=== PATIENT | female | born 2000 | race Caucasian/White ===

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

== ENCOUNTER 2021-08-07 10:16 | Emergency (ER) | payer BC, MEDICAID ==
[2021-08-07] MEDS ORDERED: Sodium Chloride 0.9% 10 ML Syringe FLUSH PRN (10:43)
[2021-08-07] MEDS ORDERED: Ondansetron 4 MG/2 ML SDV IVPUSH ONE (10:43)
[2021-08-07] MEDS ORDERED: Sodium Chloride 0.9% 2.5 ML Syringe FLUSH PRN (10:43)
[2021-08-07] MEDS ORDERED: Sodium Chloride 0.9% 1,000 ML IV ONE (10:43)
[2021-08-07 11:57] LABS: BLOOD UREA NITROGEN,BUN 5 mg/dL (7.0-18.0); CARBON DIOXIDE,CO2 23.2 mmol/L (21.0-32.0); CHLORIDE,CL 102 mmol/L (98-107); GLUCOSE RANDOM 89 mg/dL (74-106); POTASSIUM,K 3.6 mmol/L (3.5-5.1); SODIUM,NA 136 mmol/L (136-145)
[2021-08-07 17:42] VITALS: BP 96/49; PULSE 60
== END 2021-08-07 13:28 | disposition home or self-care (01) ==
LOC: MW.ED 10:16
DX: O23.11 Infections of bladder in pregnancy, first trimester (principal); O21.9 Vomiting of pregnancy, unspecified; Z88.0 Allergy status to penicillin; Z3A.01 Less than 8 weeks gestation of pregnancy
CPT/HCPCS: 36415; 80053; 81001; 84702; 85025; 96374; 99284; J2405; J3490; J7030

== ENCOUNTER 2021-08-12 20:03 | Emergency (ER) | payer BC, MEDICAID ==
[2021-08-12] MEDS ORDERED: Sodium Chloride 0.9% 1,000 ML IV ONE (20:39)
[2021-08-12] MEDS ORDERED: Ondansetron 4 MG/2 ML SDV IVPUSH ONE (20:39)
[2021-08-12 20:59] LABS: BLOOD UREA NITROGEN,BUN 4 mg/dL (7.0-18.0); CARBON DIOXIDE,CO2 23.7 mmol/L (21.0-32.0); CHLORIDE,CL 102 mmol/L (98-107); GLUCOSE RANDOM 91 mg/dL (74-106); POTASSIUM,K 3.9 mmol/L (3.5-5.1); SODIUM,NA 137 mmol/L (136-145)
[2021-08-12 22:21] VITALS: BP 100/52; PULSE 63
== END 2021-08-12 22:10 | disposition home or self-care (01) ==
LOC: MW.ED 20:03
DX: O99.891 Other specified diseases and conditions complicating pregnancy (principal); R10.84 Generalized abdominal pain; Z88.0 Allergy status to penicillin; Z3A.01 Less than 8 weeks gestation of pregnancy
CPT/HCPCS: 36415; 76817; 80053; 81001; 84702; 85025; 87086; 96374; 99284; J2405; J7030; 99283

== ENCOUNTER 2021-10-03 10:40 | Emergency (ER) | payer BC, MEDICAID ==
[2021-10-03] MEDS ORDERED: Sodium Chloride 0.9% 1,000 ML IV ONE (11:11)
[2021-10-03] MEDS ORDERED: Sodium Chloride 0.9% 10 ML Syringe FLUSH PRN (11:11)
[2021-10-03] MEDS ORDERED: Sodium Chloride 0.9% 2.5 ML Syringe FLUSH PRN (11:11)
[2021-10-03 12:03] LABS: CARBON DIOXIDE,CO2 23.9 mmol/L (21.0-32.0); POTASSIUM,K 3.6 mmol/L (3.5-5.1)
[2021-10-03 13:01] VITALS: BP 100/65; PULSE 61
== END 2021-10-03 12:50 | disposition home or self-care (01) ==
LOC: MW.ED 10:40
DX: O23.42 Unspecified infection of urinary tract in pregnancy, second trimester (principal); N39.0 Urinary tract infection, site not specified; O21.9 Vomiting of pregnancy, unspecified; Z3A.14 14 weeks gestation of pregnancy; Z88.0 Allergy status to penicillin
CPT/HCPCS: 36415; 80053; 81001; 81025; 85025; 96360; 99284; J3490; J7030

== ENCOUNTER 2022-02-28 12:01 | Observation (INO) | payer BC, MEDICAID ==
[2022-02-28] MEDS ORDERED: cefTRIAXone 1 GM in Sodium Chloride 0.9% 50 ML IV ONE (12:39)
[2022-02-28] MEDS ORDERED: Lactated Ringers 1,000 ML IV ONE (12:45)
[2022-02-28] MEDS ORDERED: Water For Irrigation,Sterile 1,000 ML Container IRR PRN (13:27)
[2022-02-28] MEDS ORDERED: Sodium Chloride 0.9% 20 ML SDV IV PRN (13:27)
[2022-02-28] MEDS ORDERED: Lidocaine 1% 50 ML MDV INJECT PRN (13:27)
[2022-02-28] MEDS ORDERED: Tranexamic Acid 1,000 MG in Sodium Chloride 0.9% 100 ML IV PRN (13:27)
[2022-02-28] MEDS ORDERED: Sodium Chloride 0.9% 10 ML Syringe FLUSH PRN (13:27)
[2022-02-28] MEDS ORDERED: Misoprostol 200 MCG Tab PO PRN (13:27)
[2022-02-28] MEDS ORDERED: Butorphanol 1 MG/ML SDV IVPUSH PRN (13:27)
[2022-02-28] MEDS ORDERED: Methylergonovine 0.2 MG/1 ML Amp IM PRN (13:27)
[2022-02-28] MEDS ORDERED: Carboprost Tromethamine 250 MCG/1 ML Amp IM PRN (13:27)
[2022-02-28] MEDS ORDERED: Sodium Chloride 0.9% 2.5 ML Syringe FLUSH PRN (13:27)
[2022-02-28] MEDS ORDERED: Betamethasone Acetate/Betamethasone Sod Phosphate 30 MG/5 ML MDV IM SCH (13:30)
[2022-02-28] MEDS ORDERED: Oxytocin/0.9 % Sodium Chloride 30 UNIT/500 ML BAG IV SCH (13:30)
[2022-02-28] MEDS ORDERED: ceFAZolin 2 GM in Premix Bag 1 BAG IV ONE (13:39)
[2022-02-28] MEDS ORDERED: hydrOXYzine HCl 25 MG Tab PO PRN (13:42)
[2022-02-28 13:43] LABS: CARBON DIOXIDE,CO2 21.8 mmol/L (21.0-32.0); POTASSIUM,K 3.1 mmol/L (3.5-5.1)
[2022-02-28] MEDS ORDERED: ceFAZolin 1 GM in Premix Bag 1 BAG IV SCH (21:30)
== END 2022-02-28 22:21 | disposition home or self-care (01) ==
LOC: MW.OBCHECK 12:01 → MW.OB 12:03 → MW.OBCHECK 18:19 → MW.OB 18:20
PROVIDERS: ADMIT Obstetrics & Gynecology; ATTEND Obstetrics & Gynecology
DX: O47.03 False labor before 37 completed weeks of gestation, third trimester (principal); Z3A.35 35 weeks gestation of pregnancy; Z88.0 Allergy status to penicillin
CPT/HCPCS: 36415; 59025; 80053; 81001; 85025; 86592; 87086; 87088; 87186; A9270; J0595; J0690; J0702

== ENCOUNTER 2022-03-11 15:57 | Observation (INO) | payer BC, MEDICAID | END 2022-03-11 17:15 | disposition home or self-care (01) | LOC: MW.OBCHECK 15:57 → MW.OB 15:57 → MW.OBCHECK 16:06 → MW.OB 16:07 | PROVIDERS: ADMIT Obstetrics & Gynecology; ATTEND Obstetrics & Gynecology | DX: O99.891 Other specified diseases and conditions complicating pregnancy (principal); R10.30 Lower abdominal pain, unspecified; Z3A.36 36 weeks gestation of pregnancy | CPT/HCPCS: 59020; 81001; G0378 ==

== ENCOUNTER 2022-03-16 12:57 | Inpatient (IN) | payer BC, MEDICAID ==
[2022-03-16] MEDS ORDERED: Sodium Chloride 0.9% 1,000 ML IV ONE (13:35)
[2022-03-16] MEDS ORDERED: Sodium Chloride 0.9% 2.5 ML Syringe FLUSH PRN ×2 (13:36→14:20)
[2022-03-16] MEDS ORDERED: Sodium Chloride 0.9% 10 ML Syringe FLUSH PRN ×2 (13:36→14:20)
[2022-03-16] MEDS ORDERED: Sodium Chloride 0.9% 20 ML SDV IV PRN ×2 (13:36→14:20)
[2022-03-16] MEDS ORDERED: Methylergonovine 0.2 MG/1 ML Amp IM PRN (14:20)
[2022-03-16] MEDS ORDERED: Water For Irrigation,Sterile 1,000 ML Container IRR PRN (14:20)
[2022-03-16] MEDS ORDERED: Lidocaine 1% 50 ML MDV INJECT PRN (14:20)
[2022-03-16] MEDS ORDERED: Terbutaline 1 MG/ML SDV SUBCUT PRN (14:20)
[2022-03-16] MEDS ORDERED: Tranexamic Acid 1,000 MG in Sodium Chloride 0.9% 100 ML IV PRN (14:20)
[2022-03-16] MEDS ORDERED: Carboprost Tromethamine 250 MCG/1 ML Amp IM PRN (14:20)
[2022-03-16] MEDS ORDERED: Misoprostol 200 MCG Tab PO PRN (14:20)
[2022-03-16] MEDS ORDERED: Oxytocin/0.9 % Sodium Chloride 30 UNIT/500 ML BAG IV SCH ×2 (14:30)
[2022-03-16] MEDS: Butorphanol 1 MG/ML SDV IVPUSH PRN ×2 (14:59→20:39)
[2022-03-16] MEDS: ceFAZolin 2 GM in Sodium Chloride 0.9% 50 ML IV SCH ×2 (15:05→22:59)
[2022-03-16] MEDS: Ondansetron 4 MG/2 ML SDV IVPUSH PRN ×2 (15:12→22:23)
[2022-03-16] MEDS: Sodium Chloride 0.9% 1,000 ML IV SCH ×3 (15:50→21:45)
[2022-03-16] MEDS ORDERED: Ropivacaine/PF 400 MG/200 ML PCA ONE (21:22)
[2022-03-16] MEDS ORDERED: ePHEDrine 50 MG/ML SDV IVPUSH PRN (21:41)
[2022-03-16] MEDS ORDERED: Phenylephrine HCl In 0.9% NaCl 1 MG/10 ML Vial IVPUSH PRN (21:41)
[2022-03-16] MEDS ORDERED: Ropivacaine HCl/PF 400 MG in Premix Bag 1 BAG EPIDUR SCH (21:45)
[2022-03-17] MEDS: Sodium Chloride 0.9% 1,000 ML IV SCH (03:58)
[2022-03-17] MEDS: Ondansetron 4 MG/2 ML SDV IVPUSH PRN (06:52)
[2022-03-17] MEDS: ceFAZolin 2 GM in Sodium Chloride 0.9% 50 ML IV SCH (06:53)
[2022-03-17] MEDS ORDERED: oxyCODONE 5 MG Tab PO PRN (09:38)
[2022-03-17] MEDS ORDERED: Docusate Sodium 100 MG Cap PO PRN (09:38)
[2022-03-17] MEDS ORDERED: Acetaminophen 500 MG Tab PO PRN ×2 (09:38)
[2022-03-17] MEDS ORDERED: Witch Hazel Medicated Pads 40/Jar TOP PRN (09:38)
[2022-03-17] MEDS ORDERED: Bisacodyl 10 MG Supp RECTAL PRN (09:38)
[2022-03-17] MEDS ORDERED: Lanolin 100% Cream 7 GM Tube TOP PRN (09:38)
[2022-03-17] MEDS ORDERED: Benzocaine/Menthol 20%-0.5% Spray 78 GM Cannister TOP PRN (09:38)
[2022-03-17] MEDS ORDERED: Ibuprofen 400 MG Tab PO PRN (09:38)
[2022-03-17] MEDS: Ibuprofen 800 MG Tab PO PRN ×2 (11:56→20:01)
[2022-03-18 08:11] VITALS: BP 106/76; PULSE 70
[2022-03-18] MEDS: Ibuprofen 800 MG Tab PO PRN (08:38)
[2022-03-18] MEDS ORDERED: cefTRIAXone 1 GM in Sodium Chloride 0.9% 50 ML IV ONE (08:51)
[2022-03-18] MEDS ORDERED: Sulfamethoxazole/Trimethoprim 800-160 MG Tab PO SCH ×2 (09:00→21:00)
== END 2022-03-18 13:45 | disposition home or self-care (01) | DRG 560 ==
LOC: MW.OBCHECK 12:57 → MW.OB 13:00 → MW.OBCHECK 17:41 → OBSVTOIN 03-17 09:20 → MW.OB 03-17 13:45
PROVIDERS: ADMIT Obstetrics & Gynecology; ATTEND Obstetrics & Gynecology
PROC: 10E0XZZ Delivery of Products of Conception, External Approach (ICD-10-PCS; principal; 2022-03-17)
PROC: 10907ZC Drainage of Amniotic Fluid, Therapeutic from Products of Conception, Via Natural or Artificial Opening (ICD-10-PCS; 2022-03-17)
PROC: 3E0R3BZ Introduction of Anesthetic Agent into Spinal Canal, Percutaneous Approach (ICD-10-PCS; 2022-03-17)
PROC: 00HU33Z Insertion of Infusion Device into Spinal Canal, Percutaneous Approach (ICD-10-PCS; 2022-03-17)
PROC: 0HQ9XZZ Repair Perineum Skin, External Approach (ICD-10-PCS; 2022-03-17)
DX: O98.82 Other maternal infectious and parasitic diseases complicating childbirth (principal); O99.824 Streptococcus B carrier state complicating childbirth; Z3A.38 38 weeks gestation of pregnancy; Z37.0 Single live birth; N12 Tubulo-interstitial nephritis, not specified as acute or chronic; O70.0 First degree perineal laceration during delivery; O69.81X0 Labor and delivery complicated by cord around neck, without compression, not applicable or unspecified
CPT/HCPCS: 01967; 36415; 51701; 51702; 59025; 59409; 80305-QW; 81001; 82803; 85014; 85018; 85027; 86592; 86850; 86900; 86901; 87086; A9270-GY; J0595; J0690; J0696; J2405; J2590; J2795; J7030; U0002

== ENCOUNTER 2022-07-23 21:45 | Emergency (ER) | payer BC, MEDICAID ==
[2022-07-23] MEDS ORDERED: Sodium Chloride 0.9% 2.5 ML Syringe FLUSH PRN (21:50)
[2022-07-23] MEDS ORDERED: Sodium Chloride 0.9% 10 ML Syringe FLUSH PRN (21:50)
[2022-07-23] MEDS ORDERED: Ketorolac 30 MG/ML SDV IVPUSH ONE (22:33)
[2022-07-23] MEDS ORDERED: Lactated Ringers 1,000 ML IV ONE (22:33)
[2022-07-23] MEDS ORDERED: Ondansetron 4 MG/2 ML SDV IVPUSH ONE (22:34)
[2022-07-23 23:16] LABS: CARBON DIOXIDE,CO2 21.9 mmol/L (21.0-32.0); POTASSIUM,K 3.1 mmol/L (3.5-5.1)
[2022-07-23] MEDS ORDERED: Iopamidol 755 MG/ML 500 ML Multipack Bottle IVPUSH STA (23:54)
[2022-07-24] MEDS ORDERED: Lactated Ringers 1,000 ML IV SCH (00:30)
[2022-07-24] MEDS ORDERED: Ondansetron 4 MG Tab.DIS PO ONE (01:43)
[2022-07-24 02:16] VITALS: BP 105/55; PULSE 65
== END 2022-07-24 02:10 | disposition home or self-care (01) ==
LOC: MW.ED 21:45
DX: N13.2 Hydronephrosis with renal and ureteral calculous obstruction (principal); Z88.0 Allergy status to penicillin
CPT/HCPCS: 36415; 74177; 74177-26; 80053; 81001; 83690; 84703; 85025; 87086; 87088; 87186; 96361; 96374; 96375; 99284-25; A9270-GY; J1885; J2405; J7120; Q9967

== ENCOUNTER 2022-08-05 06:57 | Emergency (ER) | payer BC, MEDICAID ==
[2022-08-05] MEDS ORDERED: Morphine 4 MG/ML Syringe IVPUSH ONE (07:25)
[2022-08-05] MEDS ORDERED: Ondansetron 4 MG/2 ML SDV IVPUSH ONE (07:35)
[2022-08-05] MEDS ORDERED: Ketorolac 30 MG/ML SDV IVPUSH ONE (10:34)
[2022-08-05 10:52] VITALS: BP 123/75; PULSE 59
== END 2022-08-05 10:49 | disposition home or self-care (01) ==
LOC: MW.ED 06:57
DX: N13.2 Hydronephrosis with renal and ureteral calculous obstruction (principal); Z88.0 Allergy status to penicillin
CPT/HCPCS: 74176; 81025; 96374; 96375; 99284; J1885; J2270; J2405

== ENCOUNTER 2022-09-01 03:56 | Emergency (ER) | payer BC, MEDICAID ==
[2022-09-01] MEDS ORDERED: Sodium Chloride 0.9% 1,000 ML IV ONE (04:06)
[2022-09-01] MEDS ORDERED: Ondansetron 4 MG/2 ML SDV IVPUSH ONE (04:08)
[2022-09-01] MEDS ORDERED: Ketorolac 30 MG/ML SDV IVPUSH ONE (04:08)
[2022-09-01 04:44] LABS: BILIRUBIN,URINE NEGATIVE (NEGATIVE); COLOR,URINE YELLOW; GLUCOSE,URINE NEGATIVE (NEGATIVE); KETONES,URINE NEGATIVE (NEGATIVE); LEUKOCYTE ESTERASE,URINE NEGATIVE (NEGATIVE); NITRITE,URINE NEGATIVE (NEGATIVE); OCCULT BLOOD,URINE LARGE (NEGATIVE); PROTEIN,URINE NEGATIVE (NEGATIVE); UROBILINOGEN,URINE 0.2 EU/dL (<2.0)
[2022-09-01 04:51] LABS: APPEARANCE,URINE HAZY
[2022-09-01 04:52] LABS: BASOPHILS PERCENT AUTO 0.1 % (0.0-1.5); EOSINOPHILS ABSOLUTE AUTO 0.1 K/uL (0.0-0.7); EOSINOPHILS PERCENT AUTO 0.6 % (0.0-7.0); HEMATOCRIT 37.6 % (36.0-46.0); HEMOGLOBIN 12.5 g/dL (12.0-16.0); LYMPHOCYTES ABSOLUTE AUTO 0.6 K/uL (0.6-2.4); LYMPHOCYTES PERCENT AUTO 5.7 % (16.0-40.0); MEAN CORPUSCULAR HEMOGLOBIN 26.7 pg (27.0-32.0); MEAN CORPUSCULAR HGB CONC 33.2 g/dL (31.0-37.0); MEAN CORPUSCULAR VOLUME 80.3 fL (80.0-98.0); MONOCYTES ABSOLUTE AUTO 0.3 K/uL (0.0-0.8); MONOCYTES PERCENT AUTO 2.3 % (0.0-15.0); NEUTROPHILS ABSOLUTE AUTO 10.1 K/uL (1.4-5.7); NEUTROPHILS PERCENT AUTO 91.3 % (48.0-80.0); NRBC ABSOLUTE 0 K/uL; PLATELET COUNT,PLT 232 K/uL (150-400); RED BLOOD CELL COUNT 4.68 M/uL (4.30-5.90); WHITE BLOOD CELL COUNT,WBC 11.07 K/uL (4.0-11.0)
[2022-09-01 04:52] LABS: BACTERIA,URINE FEW (NEGATIVE); EPITHELIAL CELLS,URINE OCCASIONAL (NONE-FEW); WBC,URINE 0-2 (0-5/HPF)
[2022-09-01 04:56] LABS: ALBUMIN 3.8 g/dL (3.4-5.0); BILIRUBIN TOTAL 0.6 mg/dL (0.2-1.0); CALCIUM 8.7 mg/dL (8.5-10.1); CARBON DIOXIDE,CO2 22.9 mmol/L (21.0-32.0); CREATININE 0.8 mg/dL (0.6-1.0); EST CRCL DRUG DOSING (CG) 104.14 mL/min; POTASSIUM,K 3.6 mmol/L (3.5-5.1); PROTEIN TOTAL,TP 7.6 g/dL (6.4-8.2)
[2022-09-01 05:29] VITALS: BP 114/59; PULSE 77
== END 2022-09-01 06:46 | disposition home or self-care (01) ==
LOC: MW.ED 03:56
DX: R10.9 Unspecified abdominal pain (principal); Z88.0 Allergy status to penicillin
CPT/HCPCS: 36415; 74176; 80053; 81001; 84703; 85025; 96361; 96374; 96375; 99284; J1885; J2405; J7030

== ENCOUNTER 2023-01-18 18:04 | Emergency (ER) | payer BC, MEDICAID ==
[2023-01-18 18:21] LABS: APPEARANCE,URINE SLT CLOUDY; BILIRUBIN,URINE NEGATIVE (NEGATIVE); COLOR,URINE YELLOW; GLUCOSE,URINE NEGATIVE (NEGATIVE); KETONES,URINE NEGATIVE (NEGATIVE); LEUKOCYTE ESTERASE,URINE MODERATE (NEGATIVE); NITRITE,URINE POSITIVE (NEGATIVE); OCCULT BLOOD,URINE TRACE-INTACT (NEGATIVE); PROTEIN,URINE NEGATIVE (NEGATIVE); UROBILINOGEN,URINE 0.2 EU/dL (<2.0)
[2023-01-18 18:39] LABS: BACTERIA,URINE 4+ (NEGATIVE); EPITHELIAL CELLS,URINE FEW (NONE-FEW); RBC,URINE 0-2 (0-2/HPF)
[2023-01-18] MEDS ORDERED: Ketorolac 30 MG/ML SDV IVPUSH STA (18:56)
[2023-01-18] MEDS ORDERED: Sodium Chloride 0.9% 2.5 ML Syringe FLUSH PRN (18:56)
[2023-01-18] MEDS ORDERED: Sodium Chloride 0.9% 1,000 ML IV STA ×2 (18:56→19:39)
[2023-01-18] MEDS ORDERED: Sodium Chloride 0.9% 10 ML Syringe FLUSH PRN (18:56)
[2023-01-18] MEDS ORDERED: Ondansetron 4 MG/2 ML SDV IVPUSH STA (18:56)
[2023-01-18 19:31] LABS: BASOPHILS PERCENT AUTO 0.6 % (0.0-1.5); EOSINOPHILS ABSOLUTE AUTO 0.2 K/uL (0.0-0.7); EOSINOPHILS PERCENT AUTO 3.4 % (0.0-7.0); HEMATOCRIT 42.1 % (36.0-46.0); HEMOGLOBIN 14.4 g/dL (12.0-16.0); LYMPHOCYTES ABSOLUTE AUTO 1.8 K/uL (0.6-2.4); LYMPHOCYTES PERCENT AUTO 25.7 % (16.0-40.0); MEAN CORPUSCULAR HEMOGLOBIN 28.9 pg (27.0-32.0); MEAN CORPUSCULAR HGB CONC 34.2 g/dL (31.0-37.0); MEAN CORPUSCULAR VOLUME 84.5 fL (80.0-98.0); MONOCYTES ABSOLUTE AUTO 0.6 K/uL (0.0-0.8); MONOCYTES PERCENT AUTO 8.9 % (0.0-15.0); NEUTROPHILS ABSOLUTE AUTO 4.3 K/uL (1.4-5.7); NEUTROPHILS PERCENT AUTO 61.4 % (48.0-80.0); NRBC ABSOLUTE 0 K/uL; PLATELET COUNT,PLT 275 K/uL (150-400); RED BLOOD CELL COUNT 4.98 M/uL (4.30-5.90); WHITE BLOOD CELL COUNT,WBC 7.04 K/uL (4.0-11.0)
[2023-01-18] MEDS ORDERED: cefTRIAXone 1 GM in Sodium Chloride 0.9% 50 ML IV STA (19:39)
[2023-01-18] MEDS ORDERED: Iopamidol 755 MG/ML 500 ML Multipack Bottle IVPUSH ONE (19:40)
[2023-01-18 19:47] LABS: A/G RATIO 1.1 (0.9-1.6); BILIRUBIN TOTAL 0.5 mg/dL (0.2-1.0); CALCIUM 8.2 mg/dL (8.5-10.1); CARBON DIOXIDE,CO2 26.8 mmol/L (21.0-32.0); CREATININE 0.9 mg/dL (0.6-1.0); EST CRCL DRUG DOSING (CG) 92.56 mL/min; POTASSIUM,K 3.6 mmol/L (3.5-5.1); PROTEIN TOTAL,TP 7.8 g/dL (6.4-8.2)
[2023-01-18] MEDS ORDERED: Morphine 2 MG/ML SYRINGE IVPUSH STA (21:44)
[2023-01-18 22:07] VITALS: BP 104/70; PULSE 62
== END 2023-01-18 22:13 | disposition home or self-care (01) ==
LOC: MW.ED 18:04
DX: N13.6 Pyonephrosis (principal); F17.210 Nicotine dependence, cigarettes, uncomplicated; Z88.0 Allergy status to penicillin
CPT/HCPCS: 36415; 74177; 80053; 81001; 81025; 83690; 85025; 87086; 87088; 87186; 96361; 96365; 96375; 99284; J0696; J1885; J2270; J2405; J3490; J7030; Q9967

== ENCOUNTER 2023-01-20 10:41 | Emergency (ER) | payer BC, MEDICAID ==
[2023-01-20] MEDS ORDERED: Sodium Chloride 0.9% 1,000 ML IV ONE (11:31)
[2023-01-20] MEDS ORDERED: Sodium Chloride 0.9% 10 ML Syringe FLUSH PRN (11:32)
[2023-01-20] MEDS ORDERED: Sodium Chloride 0.9% 2.5 ML Syringe FLUSH PRN (11:32)
[2023-01-20] MEDS ORDERED: Morphine 4 MG/ML Syringe IVPUSH ONE (11:52)
[2023-01-20] MEDS ORDERED: Naloxone 0.4 MG/ML SDV IVPUSH PRN (11:52)
[2023-01-20] MEDS ORDERED: Prochlorperazine 10 MG/2 ML SDV IVPUSH ONE (11:53)
[2023-01-20 12:00] LABS: BASOPHILS PERCENT AUTO 0.4 % (0.0-1.5); EOSINOPHILS ABSOLUTE AUTO 0.1 K/uL (0.0-0.7); EOSINOPHILS PERCENT AUTO 2.3 % (0.0-7.0); HEMATOCRIT 36.3 % (36.0-46.0); HEMOGLOBIN 12.1 g/dL (12.0-16.0); LYMPHOCYTES ABSOLUTE AUTO 1.4 K/uL (0.6-2.4); LYMPHOCYTES PERCENT AUTO 28.8 % (16.0-40.0); MEAN CORPUSCULAR HEMOGLOBIN 28.7 pg (27.0-32.0); MEAN CORPUSCULAR HGB CONC 33.3 g/dL (31.0-37.0); MONOCYTES ABSOLUTE AUTO 0.3 K/uL (0.0-0.8); MONOCYTES PERCENT AUTO 6.7 % (0.0-15.0); NEUTROPHILS PERCENT AUTO 61.8 % (48.0-80.0); PLATELET COUNT,PLT 215 K/uL (150-400); RED BLOOD CELL COUNT 4.22 M/uL (4.30-5.90); WHITE BLOOD CELL COUNT,WBC 4.79 K/uL (4.0-11.0)
[2023-01-20 12:20] LABS: APPEARANCE,URINE CLEAR; BILIRUBIN,URINE NEGATIVE (NEGATIVE); COLOR,URINE YELLOW; GLUCOSE,URINE NEGATIVE (NEGATIVE); KETONES,URINE NEGATIVE (NEGATIVE); LEUKOCYTE ESTERASE,URINE NEGATIVE (NEGATIVE); NITRITE,URINE NEGATIVE (NEGATIVE); OCCULT BLOOD,URINE TRACE-INTACT (NEGATIVE); PROTEIN,URINE NEGATIVE (NEGATIVE); UROBILINOGEN,URINE 0.2 EU/dL (<2.0)
[2023-01-20 12:25] LABS: A/G RATIO 1.1 (0.9-1.6); ALBUMIN 3.6 g/dL (3.4-5.0); BILIRUBIN TOTAL 0.5 mg/dL (0.2-1.0); CALCIUM 8.2 mg/dL (8.5-10.1); CARBON DIOXIDE,CO2 27.7 mmol/L (21.0-32.0); CREATININE 0.7 mg/dL (0.6-1.0); EST CRCL DRUG DOSING (CG) 119.01 mL/min; POTASSIUM,K 3.8 mmol/L (3.5-5.1)
[2023-01-20 12:29] LABS: LACTIC ACID 0.5 mmol/L (0.4-2.0)
[2023-01-20 12:35] LABS: BACTERIA,URINE FEW (NEGATIVE); EPITHELIAL CELLS,URINE MODERATE (NONE-FEW); RBC,URINE 0-3 (0-2/HPF); WBC,URINE 0-3 (0-5/HPF)
[2023-01-20 13:54] VITALS: BP 109/62; PULSE 62
== END 2023-01-20 13:53 | disposition home or self-care (01) ==
LOC: MW.ED 10:41
DX: N12 Tubulo-interstitial nephritis, not specified as acute or chronic (principal); F17.210 Nicotine dependence, cigarettes, uncomplicated; Z88.0 Allergy status to penicillin
CPT/HCPCS: 36415; 80053; 81001; 83605; 85025; 96361; 96374; 96375; 99284; J0780; J2270; J3490; J7030

== ENCOUNTER 2023-05-12 09:47 | Emergency (ER) | payer BC, MEDICAID ==
[2023-05-12] MEDS ORDERED: Morphine 4 MG/ML Syringe IVPUSH ONE (10:28)
[2023-05-12] MEDS ORDERED: Sodium Chloride 0.9% 1,000 ML IV ONE (10:28)
[2023-05-12] MEDS ORDERED: Ondansetron 4 MG/2 ML SDV IVPUSH ONE (10:28)
[2023-05-12 10:49] LABS: BASOPHILS ABSOLUTE AUTO 0.05 K/uL (0.00-0.20); BASOPHILS PERCENT AUTO 1.2 % (0.0-1.0); EOSINOPHILS PERCENT AUTO 2.4 % (0.0-6.0); HEMATOCRIT 38.8 % (37.0-47.0); HEMOGLOBIN 13.2 g/dL (12.0-16.0); IMMATURE GRAN ABSOLUTE AUTO 0.01 K/uL (0.00-0.05); IMMATURE GRAN PERCENT AUTO 0.2 % (0.0-0.4); LYMPHOCYTES ABSOLUTE AUTO 1.49 K/uL (1.00-4.80); LYMPHOCYTES PERCENT AUTO 35.1 % (24.0-44.0); MEAN CORPUSCULAR HEMOGLOBIN 29.5 pg (28.0-32.0); MEAN CORPUSCULAR VOLUME 86.6 fL (83.0-99.0); MONOCYTES ABSOLUTE AUTO 0.38 K/uL (0.00-0.80); NEUTROPHILS ABSOLUTE AUTO 2.21 K/uL (1.80-7.70); NEUTROPHILS PERCENT AUTO 52.1 % (41.0-71.0); PLATELET COUNT,PLT 249 K/uL (150-400); RED BLOOD CELL COUNT 4.48 M/uL (4.10-5.30); WHITE BLOOD CELL COUNT,WBC 4.24 K/uL (3.9-11.3)
[2023-05-12 11:02] LABS: APPEARANCE,URINE CLEAR; BILIRUBIN,URINE NEGATIVE (NEGATIVE); COLOR,URINE YELLOW; GLUCOSE,URINE NEGATIVE (NEGATIVE); KETONES,URINE NEGATIVE (NEGATIVE); LEUKOCYTE ESTERASE,URINE SMALL (NEGATIVE); NITRITE,URINE NEGATIVE (NEGATIVE); OCCULT BLOOD,URINE TRACE-INTACT (NEGATIVE); PROTEIN,URINE NEGATIVE (NEGATIVE); UROBILINOGEN,URINE 0.2 EU/dL (<2.0)
[2023-05-12 11:18] LABS: ALBUMIN 3.5 g/dL (3.4-5.0); BILIRUBIN TOTAL 0.4 mg/dL (0.2-1.0); CALCIUM 8.5 mg/dL (8.5-10.1); CARBON DIOXIDE,CO2 22.1 mmol/L (21.0-32.0); CREATININE 0.8 mg/dL (0.6-1.0); EST CRCL DRUG DOSING (CG) 103.26 mL/min; POTASSIUM,K 3.8 mmol/L (3.5-5.1); PROTEIN TOTAL,TP 6.9 g/dL (6.4-8.2)
[2023-05-12 11:23] LABS: EPITHELIAL CELLS,URINE FEW (NONE-FEW); RBC,URINE 0-2 (0-2/HPF); WBC,URINE 0-5 (0-5/HPF)
[2023-05-12 15:00] VITALS: BP 109/68; PULSE 69
== END 2023-05-12 14:14 | disposition home or self-care (01) ==
LOC: MW.ED 09:47
DX: O99.891 Other specified diseases and conditions complicating pregnancy (principal); R10.9 Unspecified abdominal pain; Z3A.01 Less than 8 weeks gestation of pregnancy; Z79.899 Other long term (current) drug therapy; Z88.5 Allergy status to narcotic agent; Z88.0 Allergy status to penicillin
CPT/HCPCS: 36415; 76775; 76801; 80053; 81001; 84702; 84703; 85025; 96361; 96374; 96375; 99284; J2270; J2405; J7030

== ENCOUNTER 2023-05-27 14:53 | Observation (INO) | payer BC ==
[2023-05-27 17:01] LABS: BASOPHILS ABSOLUTE AUTO 0.04 K/uL (0.00-0.20); BASOPHILS PERCENT AUTO 0.6 % (0.0-1.0); EOSINOPHILS ABSOLUTE AUTO 0.03 K/uL (0.00-0.45); EOSINOPHILS PERCENT AUTO 0.4 % (0.0-6.0); HEMATOCRIT 37.7 % (37.0-47.0); HEMOGLOBIN 13.4 g/dL (12.0-16.0); IMMATURE GRAN ABSOLUTE AUTO 0.02 K/uL (0.00-0.05); IMMATURE GRAN PERCENT AUTO 0.3 % (0.0-0.4); LYMPHOCYTES ABSOLUTE AUTO 1.52 K/uL (1.00-4.80); LYMPHOCYTES PERCENT AUTO 22.2 % (24.0-44.0); MEAN CORPUSCULAR HEMOGLOBIN 30.5 pg (28.0-32.0); MEAN CORPUSCULAR HGB CONC 35.5 g/dL (32.0-36.0); MEAN CORPUSCULAR VOLUME 85.9 fL (83.0-99.0); MEAN PLATELET VOLUME 9.8 fL (9.4-12.3); MONOCYTES ABSOLUTE AUTO 0.39 K/uL (0.00-0.80); MONOCYTES PERCENT AUTO 5.7 % (0.0-8.0); NEUTROPHILS ABSOLUTE AUTO 4.84 K/uL (1.80-7.70); NEUTROPHILS PERCENT AUTO 70.8 % (41.0-71.0); PLATELET COUNT,PLT 221 K/uL (150-400); RED BLOOD CELL COUNT 4.39 M/uL (4.10-5.30); WHITE BLOOD CELL COUNT,WBC 6.84 K/uL (3.9-11.3)
[2023-05-27] MEDS: Sodium Chloride 0.9% 1,000 ML IV STA (17:06)
[2023-05-27] MEDS: Ketorolac 30 MG/ML SDV IVPUSH ONE (17:06)
[2023-05-27] MEDS: Ondansetron 4 MG/2 ML SDV IVPUSH ONE ×2 (17:06→19:42)
[2023-05-27] MEDS: Sodium Chloride 0.9% 10 ML Syringe FLUSH PRN (17:07)
[2023-05-27] MEDS: Sodium Chloride 0.9% 2.5 ML Syringe FLUSH PRN (17:07)
[2023-05-27 17:20] LABS: BILIRUBIN,URINE NEGATIVE (NEGATIVE); COLOR,URINE YELLOW; GLUCOSE,URINE NEGATIVE (NEGATIVE); KETONES,URINE >=80 mg/dL (NEGATIVE); LEUKOCYTE ESTERASE,URINE LARGE (NEGATIVE); NITRITE,URINE POSITIVE (NEGATIVE); OCCULT BLOOD,URINE TRACE-INTACT (NEGATIVE); PROTEIN,URINE NEGATIVE (NEGATIVE); UROBILINOGEN,URINE 0.2 EU/dL (<2.0)
[2023-05-27 17:22] LABS: A/G RATIO 1.1 (0.9-1.6); ALBUMIN 3.9 g/dL (3.4-5.0); BILIRUBIN TOTAL 0.8 mg/dL (0.2-1.0); CALCIUM 8.8 mg/dL (8.5-10.1); CARBON DIOXIDE,CO2 22.5 mmol/L (21.0-32.0); CREATININE 0.6 mg/dL (0.6-1.0); EST CRCL DRUG DOSING (CG) 137.68 mL/min; POTASSIUM,K 3.6 mmol/L (3.5-5.1); PROTEIN TOTAL,TP 7.3 g/dL (6.4-8.2)
[2023-05-27 17:26] LABS: APPEARANCE,URINE CLOUDY
[2023-05-27 17:29] LABS: EPITHELIAL CELLS,URINE FEW (NONE-FEW); MUCUS,URINE OCCASIONAL (NONE-MOD); RBC,URINE 0-2 (0-2/HPF)
[2023-05-27 17:30] LABS: BACTERIA,URINE 2+ (NEGATIVE)
[2023-05-27] MEDS: Iopamidol 755 MG/ML 500 ML Multipack Bottle IVPUSH STA ×2 (17:54→23:09)
[2023-05-27] MEDS: Morphine 2 MG/ML SYRINGE IVPUSH ONE ×2 (18:00→19:19)
[2023-05-27] MEDS: ceFAZolin 1 GM Vial IM ONE (19:02)
[2023-05-27] MEDS: Aluminum Hydroxide/Magnesium Hydroxide/Simethicone XS Susp 30 ML Cup PO ONE (19:18)
[2023-05-27] MEDS: ceFAZolin 1 GM in Sodium Chloride 0.9% 50 ML IV ONE (19:19)
[2023-05-27] MEDS: Promethazine 25 MG/ML SDV IM PRN (21:36)
[2023-05-27] MEDS: Pantoprazole 40 MG in Sodium Chloride 0.9% 10 ML IVPUSH SCH (21:36)
[2023-05-27] MEDS: Sodium Chloride 0.9% 1,000 ML IV SCH (21:37)
[2023-05-27] MEDS: LORazepam 2 MG/ML SDV IVPUSH PRN (22:01)
[2023-05-28] MEDS: cefTRIAXone 1 GM in Sodium Chloride 0.9% 50 ML IV SCH (03:41)
[2023-05-28] MEDS: Sodium Chloride 0.9% 1,000 ML IV ONE (04:04)
[2023-05-28 04:35] LABS: BASOPHILS ABSOLUTE AUTO 0.02 K/uL (0.00-0.20); BASOPHILS PERCENT AUTO 0.5 % (0.0-1.0); EOSINOPHILS ABSOLUTE AUTO 0.07 K/uL (0.00-0.45); EOSINOPHILS PERCENT AUTO 1.6 % (0.0-6.0); HEMATOCRIT 32.4 % (37.0-47.0); HEMOGLOBIN 11.1 g/dL (12.0-16.0); IMMATURE GRAN ABSOLUTE AUTO 0.01 K/uL (0.00-0.05); IMMATURE GRAN PERCENT AUTO 0.2 % (0.0-0.4); LYMPHOCYTES ABSOLUTE AUTO 1.62 K/uL (1.00-4.80); MEAN CORPUSCULAR HEMOGLOBIN 30.2 pg (28.0-32.0); MEAN CORPUSCULAR HGB CONC 34.3 g/dL (32.0-36.0); MEAN CORPUSCULAR VOLUME 88.3 fL (83.0-99.0); MEAN PLATELET VOLUME 9.9 fL (9.4-12.3); MONOCYTES ABSOLUTE AUTO 0.39 K/uL (0.00-0.80); MONOCYTES PERCENT AUTO 8.9 % (0.0-8.0); NEUTROPHILS ABSOLUTE AUTO 2.27 K/uL (1.80-7.70); NEUTROPHILS PERCENT AUTO 51.8 % (41.0-71.0); PLATELET COUNT,PLT 157 K/uL (150-400); RED BLOOD CELL COUNT 3.67 M/uL (4.10-5.30); WHITE BLOOD CELL COUNT,WBC 4.38 K/uL (3.9-11.3)
[2023-05-28 05:01] LABS: CALCIUM 8.1 mg/dL (8.5-10.1); CARBON DIOXIDE,CO2 22.8 mmol/L (21.0-32.0); CREATININE 0.7 mg/dL (0.6-1.0); EST CRCL DRUG DOSING (CG) 118.01 mL/min; POTASSIUM,K 3.5 mmol/L (3.5-5.1)
[2023-05-28] MEDS: Ondansetron 4 MG/2 ML SDV IVPUSH PRN (06:51)
[2023-05-28] MEDS: Morphine 2 MG/ML SYRINGE IVPUSH PRN (09:36)
[2023-05-28] MEDS: LORazepam 0.5 MG Tab PO PRN (16:27)
[2023-05-28] MEDS: Escitalopram 10 MG Tab PO SCH (16:28)
[2023-05-29 05:43] LABS: BASOPHILS ABSOLUTE AUTO 0.04 K/uL (0.00-0.20); BASOPHILS PERCENT AUTO 0.8 % (0.0-1.0); EOSINOPHILS PERCENT AUTO 1.9 % (0.0-6.0); HEMATOCRIT 31.1 % (37.0-47.0); HEMOGLOBIN 10.8 g/dL (12.0-16.0); IMMATURE GRAN ABSOLUTE AUTO 0.01 K/uL (0.00-0.05); IMMATURE GRAN PERCENT AUTO 0.2 % (0.0-0.4); LYMPHOCYTES ABSOLUTE AUTO 1.57 K/uL (1.00-4.80); LYMPHOCYTES PERCENT AUTO 30.6 % (24.0-44.0); MEAN CORPUSCULAR HEMOGLOBIN 30.3 pg (28.0-32.0); MEAN CORPUSCULAR HGB CONC 34.7 g/dL (32.0-36.0); MEAN CORPUSCULAR VOLUME 87.1 fL (83.0-99.0); MEAN PLATELET VOLUME 10.1 fL (9.4-12.3); MONOCYTES ABSOLUTE AUTO 0.52 K/uL (0.00-0.80); MONOCYTES PERCENT AUTO 10.1 % (0.0-8.0); NEUTROPHILS ABSOLUTE AUTO 2.89 K/uL (1.80-7.70); NEUTROPHILS PERCENT AUTO 56.4 % (41.0-71.0); PLATELET COUNT,PLT 170 K/uL (150-400); RED BLOOD CELL COUNT 3.57 M/uL (4.10-5.30); WHITE BLOOD CELL COUNT,WBC 5.13 K/uL (3.9-11.3)
[2023-05-29 06:03] LABS: CALCIUM 7.7 mg/dL (8.5-10.1); CARBON DIOXIDE,CO2 22.5 mmol/L (21.0-32.0); CREATININE 0.6 mg/dL (0.6-1.0); EST CRCL DRUG DOSING (CG) 137.68 mL/min; POTASSIUM,K 3.7 mmol/L (3.5-5.1)
[2023-05-29 11:55] VITALS: BP 116/67; PULSE 99
== END 2023-05-29 11:54 | disposition home or self-care (01) ==
LOC: MW.ED 14:53 → MW.MS 19:48
PROVIDERS: ADMIT Internal Medicine; ATTEND Internal Medicine
DX: O23.01 Infections of kidney in pregnancy, first trimester (principal); N20.0 Calculus of kidney; Z3A.01 Less than 8 weeks gestation of pregnancy; O99.341 Other mental disorders complicating pregnancy, first trimester; F32.A Depression, unspecified; F41.9 Anxiety disorder, unspecified; Z79.899 Other long term (current) drug therapy; Z88.0 Allergy status to penicillin; Z88.5 Allergy status to narcotic agent
CPT/HCPCS: 36415; 74177; 80048; 80053; 81001; 83605; 85025; 87040; 87086; 96361; 96365; 96375; 96376; 99285; A9270; C9113; J0690; J0696; J1885; J2060; J2270; J2405; J2550; J3490; J7030; Q9967; 96366; 96367; 96372; 99284; G0378

== ENCOUNTER 2024-01-04 07:06 | Inpatient (IN) | payer BC, MEDICAID ==
[2024-01-04] MEDS ORDERED: Sodium Chloride 0.9% 10 ML Syringe FLUSH PRN (07:20)
[2024-01-04] MEDS ORDERED: Tranexamic Acid IN NACL,ISO-OS 1,000 MG in Premix Bag 1 BAG IV PRN (07:20)
[2024-01-04] MEDS ORDERED: Sodium Chloride 0.9% 20 ML SDV IV PRN (07:20)
[2024-01-04] MEDS ORDERED: Carboprost Tromethamine 250 MCG/1 mL Vial IM PRN (07:20)
[2024-01-04] MEDS ORDERED: Misoprostol 200 MCG Tab PO PRN (07:20)
[2024-01-04] MEDS ORDERED: Sodium Chloride 0.9% 2.5 ML Syringe FLUSH PRN (07:20)
[2024-01-04] MEDS ORDERED: Water For Irrigation,Sterile 1,000 ML Container IRR PRN (07:20)
[2024-01-04] MEDS ORDERED: Methylergonovine 0.2 MG/1 ML Amp IM PRN (07:20)
[2024-01-04] MEDS ORDERED: Lidocaine 1% 50 ML MDV INJECT PRN (07:20)
[2024-01-04] MEDS ORDERED: Terbutaline 1 MG/ML SDV SUBCUT PRN (07:20)
[2024-01-04] MEDS ORDERED: ePHEDrine 50 MG/ML SDV IVPUSH PRN (07:29)
[2024-01-04] MEDS ORDERED: dexmedeTOMIDine HCl 200 MCG/2 ML SDV EPIDUR SCH (07:30)
[2024-01-04 07:59] LABS: HEMATOCRIT 31.9 % (37.0-47.0); HEMOGLOBIN 10.8 g/dL (12.0-16.0); MEAN CORPUSCULAR HGB CONC 33.9 g/dL (32.0-36.0); MEAN CORPUSCULAR VOLUME 85.5 fL (83.0-99.0); MEAN PLATELET VOLUME 10.8 fL (9.4-12.3); PLATELET COUNT,PLT 255 K/uL (150-400); RED BLOOD CELL COUNT 3.73 M/uL (4.10-5.30)
[2024-01-04] MEDS: Clindamycin Phosphate in D5W 900 MG in Premix Bag 1 BAG IV SCH (08:00)
[2024-01-04] MEDS: Lactated Ringers 1,000 ML IV SCH (08:00)
[2024-01-04] MEDS: Oxytocin/0.9 % Sodium Chloride 30 UNIT/500 ML BAG IV SCH ×2 (08:05→14:55)
[2024-01-04] MEDS: Butorphanol 2 MG/ML SDV IVPUSH PRN (09:08)
[2024-01-04] MEDS: Ropivacaine HCl/PF 400 MG in Premix Bag 1 BAG EPIDUR SCH (10:14)
[2024-01-04] MEDS: Phenylephrine HCl In 0.9% NaCl 1 MG/10 ML Syringe IVPUSH PRN (10:48)
[2024-01-04] MEDS ORDERED: Bupivacaine 0.25% 10 ML SDV ONE (11:08)
[2024-01-04] MEDS ORDERED: fentaNYL 100 MCG/2 ML SDV ONE (11:08)
[2024-01-04] MEDS: Ondansetron 4 MG/2 ML SDV IVPUSH PRN (13:15)
[2024-01-04] MEDS ORDERED: oxyCODONE 5 MG Tab PO PRN (15:05)
[2024-01-04 15:28] LABS: PH,UMBILICAL ARTERIAL 7.246 (7.18-7.38); PH,UMBILICAL VENOUS 7.381 (7.25-7.45)
[2024-01-04] MEDS: Acetaminophen 500 MG Tab PO PRN (19:09)
[2024-01-04] MEDS: Ibuprofen 800 MG Tab PO PRN (19:09)
[2024-01-04] MEDS: Benzocaine/Menthol 20%-0.5% Spray 78 GM Cannister TOP PRN (19:10)
[2024-01-04] MEDS: Witch Hazel Medicated Pads 40/Jar TOP PRN (19:10)
[2024-01-04] MEDS: Lanolin 100% Cream 7 GM Tube TOP PRN (22:59)
[2024-01-05 05:33] LABS: HEMATOCRIT 30.9 % (37.0-47.0); HEMOGLOBIN 9.6 g/dL (12.0-16.0)
[2024-01-05] MEDS: Docusate Sodium 100 MG Cap PO PRN (10:18)
[2024-01-06 08:01] VITALS: BP 100/66; PULSE 56
== END 2024-01-06 11:25 | disposition still patient (30) | DRG 560 ==
LOC: MW.OB 07:06 → UNDOADMOB 07:06 → MW.OB 07:20 → OBSVTOIN 15:03 → MW.OB 19:53
PROVIDERS: ADMIT Obstetrics & Gynecology; ATTEND Obstetrics & Gynecology
PROC: 10E0XZZ Delivery of Products of Conception, External Approach (ICD-10-PCS; principal; 2024-01-04)
DX: O99.824 Streptococcus B carrier state complicating childbirth (principal); Z37.0 Single live birth; Z3A.38 38 weeks gestation of pregnancy; O71.82 Other specified trauma to perineum and vulva
CPT/HCPCS: 01967; 36415; 51702; 59025; 82803; 85014; 85018; 85027; 86592; 86850; 86900; 86901; A9270-GY; J0595; J0736; J2371; J2405; J2590; J2795; J3010; J3490; J7120

== ENCOUNTER 2024-04-27 11:48 | Emergency (ER) | payer BC, MEDICAID ==
[2024-04-27 12:06] VITALS: BP 115/55
[2024-04-27 12:24] LABS: BILIRUBIN,URINE NEGATIVE (NEGATIVE); COLOR,URINE YELLOW; GLUCOSE,URINE NEGATIVE (NEGATIVE); KETONES,URINE TRACE mg/dL (NEGATIVE); LEUKOCYTE ESTERASE,URINE SMALL (NEGATIVE); NITRITE,URINE NEGATIVE (NEGATIVE); OCCULT BLOOD,URINE SMALL (NEGATIVE); PROTEIN,URINE TRACE mg/dL (NEGATIVE); UROBILINOGEN,URINE 0.2 EU/dL (<2.0)
[2024-04-27] MEDS: Sodium Chloride 0.9% 1,000 ML IV ONE ×2 (12:25→13:14)
[2024-04-27] MEDS: Sodium Chloride 0.9% 10 ML Syringe FLUSH PRN (12:25)
[2024-04-27] MEDS: Ondansetron 4 MG/2 ML SDV IVPUSH ONE (12:25)
[2024-04-27 12:35] LABS: BASOPHILS ABSOLUTE AUTO 0.05 K/uL (0.00-0.20); BASOPHILS PERCENT AUTO 1.3 % (0.0-1.0); EOSINOPHILS ABSOLUTE AUTO 0.05 K/uL (0.00-0.45); EOSINOPHILS PERCENT AUTO 1.3 % (0.0-6.0); HEMATOCRIT 38.5 % (37.0-47.0); HEMOGLOBIN 12.9 g/dL (12.0-16.0); IMMATURE GRAN ABSOLUTE AUTO 0.01 K/uL (0.00-0.05); IMMATURE GRAN PERCENT AUTO 0.3 % (0.0-0.4); LYMPHOCYTES ABSOLUTE AUTO 0.44 K/uL (1.00-4.80); LYMPHOCYTES PERCENT AUTO 11.1 % (24.0-44.0); MEAN CORPUSCULAR HEMOGLOBIN 28.2 pg (28.0-32.0); MEAN CORPUSCULAR HGB CONC 33.5 g/dL (32.0-36.0); MEAN CORPUSCULAR VOLUME 84.1 fL (83.0-99.0); MEAN PLATELET VOLUME 9.7 fL (9.4-12.3); MONOCYTES ABSOLUTE AUTO 0.53 K/uL (0.00-0.80); MONOCYTES PERCENT AUTO 13.4 % (0.0-8.0); NEUTROPHILS ABSOLUTE AUTO 2.89 K/uL (1.80-7.70); NEUTROPHILS PERCENT AUTO 72.6 % (41.0-71.0); PLATELET COUNT,PLT 214 K/uL (150-400); RED BLOOD CELL COUNT 4.58 M/uL (4.10-5.30); WHITE BLOOD CELL COUNT,WBC 3.97 K/uL (3.9-11.3)
[2024-04-27 12:37] LABS: APPEARANCE,URINE HAZY
[2024-04-27 12:42] LABS: BACTERIA,URINE FEW (NEGATIVE); MUCUS,URINE LIGHT (NONE-MOD); SQUAMOUS EPITHELIAL CELLS,UR FEW
[2024-04-27 12:56] LABS: A/G RATIO 1.1 (0.9-1.6); ALBUMIN 3.9 g/dL (3.4-5.0); BILIRUBIN TOTAL 0.5 mg/dL (0.2-1.0); CALCIUM 8.9 mg/dL (8.5-10.1); CARBON DIOXIDE,CO2 23.2 mmol/L (21.0-32.0); CREATININE 0.8 mg/dL (0.6-1.0); EST CRCL DRUG DOSING (CG) 102.39 mL/min; MAGNESIUM 1.8 mg/dL (1.8-2.4); POTASSIUM,K 3.5 mmol/L (3.5-5.1); PROTEIN TOTAL,TP 7.4 g/dL (6.4-8.2)
[2024-04-27 13:55] VITALS: PULSE 63
== END 2024-04-27 13:55 | disposition home or self-care (01) ==
LOC: MW.ED 11:48
DX: U07.1 COVID-19 (principal); E86.0 Dehydration; N30.00 Acute cystitis without hematuria; Z88.0 Allergy status to penicillin; Z88.5 Allergy status to narcotic agent; Z88.8 Allergy status to other drugs, medicaments and biological substances; Z79.899 Other long term (current) drug therapy
CPT/HCPCS: 36415; 80053; 81001; 81025; 83735; 85025; 87086; 87428; 96361; 96374; 99284; J2405; J7030